=== PATIENT | female | born 1955 | race Caucasian/White ===

== ENCOUNTER 2016-08-23 13:40 | Emergency (ER) | payer SELFPAY ==
[~2016-08-23] VITALS: Ht 160 cm; Wt 54.4 kg
[2016-08-23] MEDS ORDERED: ATIVAN0.5 MG PO (13:41)
[2016-08-23] MEDS ORDERED: VITAMIN D2400 UNIT PO (13:42)
[2016-08-23] MEDS ORDERED: GABAPENTIN800 MG PO (13:43)
[2016-08-23] MEDS ORDERED: ADVAIR 500/501 EA INH (13:43)
[2016-08-23] MEDS ORDERED: APRESOLINE25 MG PO (13:43)
[2016-08-23] MEDS ORDERED: KEFLEX500 M1 PO (13:44)
[2016-08-23] MEDS ORDERED: LIPITOR40 MG PO (13:44)
[2016-08-23] MEDS ORDERED: LEVOTHYROXINE0.2 MG PO (13:44)
[2016-08-23] MEDS ORDERED: PRINIVIL20 M1 PO (13:45)
[2016-08-23] MEDS ORDERED: Lopressor25 MG PO (13:45)
[2016-08-23] MEDS ORDERED: PERCOCET 325 MG1 TA2 PO (13:46)
[2016-08-23] MEDS ORDERED: PLAVIX75 M1 PO (13:46)
[2016-08-23] MEDS ORDERED: ALBUTEROL2.5 MG/0.5 INH (13:47)
[2016-08-23] MEDS ORDERED: ASPIRIN81 M1 PO (13:47)
[2016-08-23 14:13] LABS: HEMATOCRIT 28.8 % (37.0-47.0); HEMOGLOBIN 9.1 g/dl (12.0-16.0); MEAN CORPUSCULAR HGB 30.6 pg (27.0-31.0); MEAN CORPUSCULAR HGB CONC 31.6 g/dl (33.0-37.0); MEAN PLATELET VOLUME 9.4 fl (9.6-12.3); PLATELET COUNT AUTOMATED 511 10*3/uL (130-400); RED BLOOD COUNT 2.97 10*6/uL (4.10-5.10); RED CELL DISTRI WIDTH 15.2 % (0-14.5); WHITE BLOOD COUNT 19.1 10*3/uL (4.8-10.8)
[2016-08-23 14:31] LABS: ALBUMIN 2.9 gm/dl (3.1-4.5); ALKALINE PHOSPHATASE 74 U/L (45-117); BILIRUBIN, TOTAL 0.9 mg/dl (0.2-1.0); BUN 8 mg/dl (7-24); CARBON DIOXIDE 30 mmol/L (21-32); CHLORIDE 99 mmol/L (98-107); EST GLOM FILT AFRICAN AMERICAN > 60 ml/min; GLUCOSE 106 mg/dL (65-99); MAGNESIUM 2.3 mg/dL (1.5-2.1); POTASSIUM 4.6 mmol/L (3.5-5.1); SGOT/AST 25 IU/L (3-35); SGPT/ALT 20 U/L (12-78); SODIUM 137 mmol/L (136-145); TOTAL PROTEIN 6.5 gm/dL (6.4-8.2)
[2016-08-23 14:32] LABS: BASOPHIL # 0.2 10*3/uL (0-0.1); BASOPHILS 1 % (0-1); EOSINOPHIL # 0.4 10*3/uL (0-0.4); EOSINOPHILS 2 % (1-4); HYPOCHROMIA SLIGHT; LYMPHOCYTE # 2.1 10*3/uL (1.3-4.4); METAMYELOCYTES 1 % (0-0); MONOCYTE # 1.3 10*3/uL (0.1-1.0); MYELOCYTES 2 % (0-0); NEUTROPHIL # 14.5 10*3/uL (2.3-7.9); NEUTROPHILS 76 % (47-73); PLATELET SUFFICIENCY HIGH (NORMAL); POLYCHROMASIA SLIGHT; TOTAL CELLS COUNTED 100 #CELLS
[2016-08-23 14:50] LABS: ABG BASE EXCESS 4.9 mmol/L (-2.0-2.0); ABG HCO3 29.6 mmol/l (22-26); ABG TEMPERATURE 98.6 F (98.0-99.0); ARTERIAL BLOOD GAS PH 7.413 (7.35-7.45)
[2016-08-23 14:50] LABS: TROPONIN I 0.292 ng/ml (<0.045)
[2016-08-23 15:12] LABS: BILIRUBIN NEGATIVE (NEGATIVE); BLOOD NEGATIVE (NEGATIVE); CLARITY CLEAR (CLEAR); COLOR YELLOW (YELLOW); GLUCOSE NEGATIVE (NEGATIVE); KETONE NEGATIVE (NEGATIVE); LEUKO ESTERASE NEGATIVE (NEGATIVE); NITRITE NEGATIVE (NEGATIVE); PROTEIN TRACE (NEGATIVE)
[2016-08-23 15:49] LABS: EPITHELIAL CELLS 16-20; RBC 0-2 rbc/hpf (0-2); YEAST 2+
[2016-08-23 15:51] LABS: URINE REFLEX COMMENT YES (NO)
== END 2016-08-23 21:49 | disposition short-term general hospital (02) ==
LOC: ED 13:40
PROVIDERS: Family Medicine Adult Medicine
DX: S30.1XXA Contusion of abdominal wall, initial encounter (principal); A41.9 Sepsis, unspecified organism; R65.20 Severe sepsis without septic shock; J44.1 Chronic obstructive pulmonary disease with (acute) exacerbation; I26.99 Other pulmonary embolism without acute cor pulmonale; Z79.82 Long term (current) use of aspirin; Z79.899 Other long term (current) drug therapy; Z95.1 Presence of aortocoronary bypass graft; X58.XXXA Exposure to other specified factors, initial encounter; Y93.89 Activity, other specified; Y92.89 Other specified places as the place of occurrence of the external cause; Y99.9 Unspecified external cause status

== ENCOUNTER 2016-09-26 12:06 | Inpatient (IN) | payer MEDICARE ==
[~2016-09-26] VITALS: Ht 162.5 cm; Wt 61.2 kg
[2016-09-26 12:06] VITALS: BP 86/50
[~2016-09-26 12:06] MED LIST: ADVAIR 500/501 EA INH; ALBUTEROL2.5 MG/0.5 INH; APRESOLINE25 MG PO; ASPIRIN81 M1 PO; ATIVAN0.5 MG PO; GABAPENTIN800 MG PO; KEFLEX500 M1 PO; LEVOTHYROXINE0.2 MG PO; LIPITOR40 MG PO; Lopressor25 MG PO; PERCOCET 325 MG1 TA2 PO; PLAVIX75 M1 PO; PRINIVIL20 M1 PO; VITAMIN D2400 UNIT PO
[2016-09-26 12:10] VITALS: BP 86/50
[2016-09-26 13:04] LABS: BASO % 0.1 % (0.0-1.0); EOS # 0.2 10*3/uL (0.0-0.4); EOS % 2.6 % (1.0-4.0); HEMATOCRIT 24.1 % (37.0-47.0); HEMOGLOBIN 7.7 g/dl (12.0-16.0); IG # 0.1 10*3/uL (0.0-0.1); LYMPH # 2.4 10*3/uL (1.3-4.4); LYMPH % 26.7 % (27.0-41.0); MEAN CELL VOLUME 95.3 fl (81.0-99.0); MEAN CORPUSCULAR HGB 30.4 pg (27.0-31.0); MEAN PLATELET VOLUME 8.6 fl (9.6-12.3); MONO # 1.2 10*3/uL (0.1-1.0); MONO % 12.9 % (3.0-9.0); NEUT # 5.2 10*3/uL (2.3-7.9); NEUT % 57.1 % (47.0-73.0); PLATELET COUNT AUTOMATED 243 10*3/uL (130-400); RED BLOOD COUNT 2.53 10*6/uL (4.10-5.10); RED CELL DISTRI WIDTH 15.6 % (0-14.5)
[2016-09-26 13:13] LABS: INTERNATIONAL NORM RATIO 1.1 (2.0-3.5); PROTHROMBIN TIME 11.4 SECONDS (9.0-12.4)
[2016-09-26 13:15] VITALS: BP 104/47
[2016-09-26 13:18] LABS: ALBUMIN 2.8 gm/dl (3.1-4.5); ALKALINE PHOSPHATASE 66 U/L (45-117); BILIRUBIN, TOTAL 0.3 mg/dl (0.2-1.0); BUN 36 mg/dl (7-24); CARBON DIOXIDE 33 mmol/L (21-32); CHLORIDE 100 mmol/L (98-107); EST GLOM FILT AFRICAN AMERICAN > 60 ml/min; GLUCOSE 100 mg/dL (65-99); POTASSIUM 4.6 mmol/L (3.5-5.1); SGOT/AST 14 IU/L (3-35); SGPT/ALT 9 U/L (12-78); SODIUM 141 mmol/L (136-145); TOTAL PROTEIN 6.7 gm/dL (6.4-8.2)
[2016-09-26 14:19] VITALS: BP 110/48
[2016-09-26] MEDS ORDERED: CLONAZEPAM1 MG PO (14:52)
[2016-09-26] MEDS ORDERED: LASIX20 MG PO (14:52)
[2016-09-26] MEDS ORDERED: POTASSIUM CHLO20 ME3 PO (14:53)
[2016-09-26] MEDS ORDERED: ELIQUIS5 M1 PO (14:53)
[2016-09-26] MEDS ORDERED: COLACE100 MG PO (14:54)
[2016-09-26 15:40] VITALS: BP 156/73
== END 2016-09-26 17:40 | disposition short-term general hospital (02) | DRG 862 ==
LOC: ED 12:06 → EDHOLD 13:47 → 4E 14:41 → ICCU 15:59
PROVIDERS: Emergency Medicine
PROC: 30233N1 Transfusion of Nonautologous Red Blood Cells into Peripheral Vein, Percutaneous Approach (ICD-10-PCS; principal; 2016-09-26)
DX: T81.4XXA Infection following a procedure, initial encounter (principal); A41.9 Sepsis, unspecified organism; R65.20 Severe sepsis without septic shock; E44.0 Moderate protein-calorie malnutrition; I11.0 Hypertensive heart disease with heart failure; I50.9 Heart failure, unspecified; I25.810 Atherosclerosis of coronary artery bypass graft(s) without angina pectoris; K92.2 Gastrointestinal hemorrhage, unspecified; G62.9 Polyneuropathy, unspecified; J44.9 Chronic obstructive pulmonary disease, unspecified; E55.9 Vitamin D deficiency, unspecified; E03.9 Hypothyroidism, unspecified; E78.5 Hyperlipidemia, unspecified; F41.9 Anxiety disorder, unspecified; G89.29 Other chronic pain; D64.9 Anemia, unspecified; E86.0 Dehydration; L98.499 Non-pressure chronic ulcer of skin of other sites with unspecified severity; Z86.711 Personal history of pulmonary embolism; Z95.1 Presence of aortocoronary bypass graft; Z79.51 Long term (current) use of inhaled steroids; Z79.899 Other long term (current) drug therapy; Z68.21 Body mass index [BMI] 21.0-21.9, adult; R58 Hemorrhage, not elsewhere classified

== ENCOUNTER 2016-10-11 14:15 | Emergency (ER) | payer MEDICARE ==
[~2016-10-11] VITALS: Ht 162.5 cm; Wt 55.8 kg
[~2016-10-11 14:15] MED LIST changes: +CLONAZEPAM1 MG PO; +COLACE100 MG PO; +ELIQUIS5 M1 PO; +LASIX20 MG PO; +POTASSIUM CHLO20 ME3 PO
[2016-10-11 14:50] LABS: HEMATOCRIT 30.6 % (37.0-47.0); HEMOGLOBIN 10.1 g/dl (12.0-16.0); MEAN CELL VOLUME 93.3 fl (81.0-99.0); MEAN CORPUSCULAR HGB 30.8 pg (27.0-31.0); MEAN PLATELET VOLUME 8.2 fl (9.6-12.3); PLATELET COUNT AUTOMATED 348 10*3/uL (130-400); RED BLOOD COUNT 3.28 10*6/uL (4.10-5.10); RED CELL DISTRI WIDTH 16.7 % (0-14.5); WHITE BLOOD COUNT 28.2 10*3/uL (4.8-10.8)
[2016-10-11] MEDS ORDERED: ASPIRIN CHEWABL81 MG PO (14:52)
[2016-10-11] MEDS ORDERED: CLOPIDOGREL75 MG PO (14:54)
[2016-10-11] MEDS ORDERED: ELIQUIS5 M1 PO (14:56)
[2016-10-11] MEDS ORDERED: ARGINAID POWDE1 EACH PO (14:57)
[2016-10-11] MEDS ORDERED: LYRICA50 M1 PO (15:00)
[2016-10-11] MEDS ORDERED: OXYCONTIN10 M1 PO (15:01)
[2016-10-11] MEDS ORDERED: ATARAX,VISTARIL10 MG PO (15:04)
[2016-10-11 15:06] LABS: ALBUMIN 3.6 gm/dl (3.1-4.5); ALKALINE PHOSPHATASE 70 U/L (45-117); BILIRUBIN, TOTAL 0.2 mg/dl (0.2-1.0); BUN 19 mg/dl (7-24); CARBON DIOXIDE 32 mmol/L (21-32); CHLORIDE 90 mmol/L (98-107); EST GLOM FILT AFRICAN AMERICAN > 60 ml/min; GLUCOSE 97 mg/dL (65-99); POTASSIUM 5.3 mmol/L (3.5-5.1); SGOT/AST 15 IU/L (3-35); SGPT/ALT 16 U/L (12-78); SODIUM 131 mmol/L (136-145); TOTAL PROTEIN 7.3 gm/dL (6.4-8.2)
[2016-10-11 15:16] LABS: BASOPHIL # 0.3 10*3/uL (0-0.1); BASOPHILS 1 % (0-1); LYMPHOCYTE # 0.6 10*3/uL (1.3-4.4); METAMYELOCYTES 1 % (0-0); NEUTROPHIL # 25.1 10*3/uL (2.3-7.9); NEUTROPHILS 89 % (47-73); PLATELET SUFFICIENCY NORMAL (NORMAL); TOTAL CELLS COUNTED 100 #CELLS
[2016-10-11 15:17] LABS: HYPOCHROMIA SLIGHT; POLYCHROMASIA SLIGHT; STOMATOCYTE FEW
[2016-10-11 15:18] LABS: MICROCYTOSIS SLIGHT
[2016-10-11 15:33] LABS: BILIRUBIN NEGATIVE (NEGATIVE); BLOOD TRACE-LYSED (NEGATIVE); CLARITY CLEAR (CLEAR); COLOR YELLOW (YELLOW); GLUCOSE NEGATIVE (NEGATIVE); KETONE NEGATIVE (NEGATIVE); LEUKO ESTERASE NEGATIVE (NEGATIVE); NITRITE NEGATIVE (NEGATIVE); PROTEIN NEGATIVE (NEGATIVE); SPECIFIC GRAVITY <= 1.005 (1.005-1.030); UROBILINOGEN 0.2 E.U./dl (0.2-1.0)
[2016-10-11 15:41] LABS: URINE REFLEX COMMENT NO (NO)
== END 2016-10-11 17:23 | disposition short-term general hospital (02) ==
LOC: ED 14:15
PROVIDERS: Emergency Medicine
DX: A41.9 Sepsis, unspecified organism (principal); R65.21 Severe sepsis with septic shock; D72.829 Elevated white blood cell count, unspecified; K92.2 Gastrointestinal hemorrhage, unspecified; Z95.1 Presence of aortocoronary bypass graft; Z95.5 Presence of coronary angioplasty implant and graft; F41.9 Anxiety disorder, unspecified; I25.10 Atherosclerotic heart disease of native coronary artery without angina pectoris; I50.9 Heart failure, unspecified; J44.9 Chronic obstructive pulmonary disease, unspecified; I10 Essential (primary) hypertension; E78.5 Hyperlipidemia, unspecified; E03.9 Hypothyroidism, unspecified; Z79.82 Long term (current) use of aspirin; Z79.899 Other long term (current) drug therapy